=== PATIENT | female | born 1950 | race Caucasian/White ===

== ENCOUNTER → 2021-05-22 | Outpatient (CLI) | payer MEDICARE ==
--- NOTE | 2021-05-22 15:50 | US ---
EXAMINATION TYPE: US abdomen complete DATE OF EXAM: 05/22/2021 COMPARISON: NONE CLINICAL HISTORY: 70-year-old female R10.11 RT UPPER QUADRANT PAIN. RUQ pain. TECHNIQUE: Multiple sonographic images of the abdomen are obtained. FINDINGS: EXAM MEASUREMENTS: Liver Length: 16.7 cm Gallbladder Wall: 0.2 cm CBD: 0.6 cm Spleen: 9.4 cm Right Kidney: 11.0 x 5.4 x 5.1 cm Left Kidney: 11.2 x 4.8 x 5.8 cm Pancreas: No specific abnormality. Liver: wnl Gallbladder: multiple mobile echogenic foci. No abnormal distention, wall thickening, or surrounding fluid. Evidence for sonographic Hernandez's sign: neg CBD: wnl Spleen: wnl Kidneys: No hydronephrosis. Upper IVC: wnl Abd Aorta: No AAA visualized IMPRESSION: 1. Cholelithiasis with small layering gallstones. No axillary findings of acute cholecystitis. 2. Bile duct borderline dilated at 6 mm. This may be acceptable given patient's age. Correlate with a lkaline phosphatase and bilirubin levels.
== END | disposition home or self-care (01) ==
LOC: RADUSWWP 12:55
PROVIDERS: ATTEND Family Medicine
DX: K80.20 Calculus of gallbladder without cholecystitis without obstruction (principal)
CPT/HCPCS: 76700

== ENCOUNTER 2021-07-04 08:12 | Observation (INO) | payer MEDICARE ==
[2021-07-03 09:16] VITALS: BMI 28.2
[~2021-07-04 08:12] MED LIST: ACETAMINOPHEN TAB 500 MG TAB PO PRN; DEXAMETHASONE SOD PHOSPHATE 4 MG/ML 1 ML VIAL IV ONE; HEPARIN SODIUM,PORCINE/PF 5,000 UNIT/0.5 ML SYRINGE SQ PRN; LIDOCAINE 1% (10MG/ML) FOR IV START INTRADERMA PRN; MIDAZOLAM 2 MG/2 ML VIAL IV PRN; ONDANSETRON 4 MG/2 ML VIAL IVP ONE
[2021-07-04 09:08] LABS: Glucose,Whole Blood 99 mg/dL (75-99)
--- NOTE | 2021-07-04 09:09 | P.GSHP ---
History of Present Illness H&P Date: 07/04/21 Chief Complaint: Cholelithiasis This a 68-year-old female who presents today for laparoscopic cholecystectomy. Patient is requiring pain. She does not have cholelithiasis on ultrasound. Past Medical History Past Medical History: Diabetes Mellitus, Hyperlipidemia, Hypertension Additional Past Medical History / Comment(s): GALLBLADDER DISORDER History of Any Multi-Drug Resistant Organisms: None Reported Past Surgical History: Adenoidectomy, Back Surgery, Bladder Surgery, Heart Catheterization, Joint Replacement, Orthopedic Surgery, Tubal Ligation Additional Past Surgical History / Comment(s): PARTIAL RT TKA. BILAT CATARACT SURGERY. COLONOSCOPY. BILAT FOOT SX. RECTOCELE. BILAT EYELID SX Past Anesthesia/Blood Transfusion Reactions: No Reported Reaction Smoking Status: Never smoker, Second hand smoke exposure - Past Family History Mother Family Medical History: Cancer Medications and Allergies Home Medications Medication Instructions Recorded Confirmed Type Aspirin 81 mg PO DAILY 07/03/21 07/04/21 History Atorvastatin [Lipitor] 20 mg PO HS 07/03/21 07/04/21 History Glimepiride [Amaryl] 2 mg PO BID 07/03/21 07/04/21 History Insulin Detemir (Levemir) [Levemir] 35 unit SQ HS 07/03/21 07/04/21 History Isosorbide Mononitrate [Isosorbide 30 mg PO DAILY 07/03/21 07/04/21 History Mononitrate ER] Losartan [Cozaar] 25 mg PO DAILY 07/03/21 07/04/21 History Metoprolol Succinate [Toprol XL] 25 mg PO DAILY 07/03/21 07/04/21 History metFORMIN HCL [Glucophage] 500 mg PO BID 07/03/21 07/04/21 History Allergies Allergy/AdvReac Type Severity Reaction Status Date / Time No Known Allergies Allergy Verified 07/04/21 08:56 Surgical - Exam - General well developed, well nourished, no distress - Eyes PERRL - ENT normal pinna - Neck no masses - Respiratory normal expansion - Cardiovascular Rhythm: regular - Abdomen Abdomen: soft, non tender Assessment and Plan Assessment: Cholelithiasis. We'll perform laparoscopic cholecystectomy.
[2021-07-04] MEDS: LACTATED RINGERS 1,000 ML IV SCH (09:15)
[2021-07-04] MEDS ORDERED: BUPIVACAIN-EPI 0.25%-1:200,000 30 ML VIAL SQ ONE (09:32)
[2021-07-04] MEDS ORDERED: LIDOCAINE 1% INJ 10MG/ML (20 ML MDV) ONE (09:35)
[2021-07-04] MEDS ORDERED: PROPOFOL 10 MG/ML 20 ML VIAL IV ONE (09:35)
[2021-07-04] MEDS ORDERED: ROCURONIUM 10 MG/ML (5 ML VIAL) IV ONE (09:35)
[2021-07-04] MEDS ORDERED: MIDAZOLAM 2 MG/2 ML VIAL ONE (09:35)
[2021-07-04] MEDS ORDERED: SUCCINYLCHOLINE CHLORIDE 100 MG/5 ML SYR IV ONE (09:35)
[2021-07-04] MEDS ORDERED: fentaNYL (PF) 50 MCG/ML 2 ML AMP ONE (09:35)
--- NOTE | 2021-07-04 10:29 | P.OP ---
Date of Procedure: 07/04/21 Preoperative Diagnosis: Cholelithiasis Postoperative Diagnosis: Cholelithiasis Procedure(s) Performed: Laparoscopic cholecystectomy Anesthesia: ORESTES Surgeon: Yahir Mckeon Estimated Blood Loss (ml): 5 Pathology: other (Gallbladder) Condition: stable Disposition: PACU Description of Procedure: The patient was placed on the operating table. The patient received a general endotracheal tube anesthesia. The patients abdomen was prepped and draped in the usual sterile fashion. Through an infraumbilical stab incision, the fascia of the anterior abdominal wall was grasped with a pair of Kochers and then the Veress needle was placed in the peritoneal cavity. Position of the Veress needle was confirmed with positive drop test. The abdomen was then insufflated. After adequate insufflation, the 10 mm trocar was placed in the peritoneal cavity. Following this the laparoscope was placed in the peritoneal cavity. The patient was placed in the head-up, right side up position and then a 5 mm trocar was placed in the right lateral and right subcostal position under direct visualization. A 8 mm trocar was placed in the epigastric position. The gallbladder was grasped in the fundus and infundibulum. Traction on the gallbladder was placed in the lateral and the cephalad positions. The triangle of Calot was visualized.. The cystic duct was bluntly dissected until the union of the cystic duct and common bile duct was seen. A critical view of safety was achieved. The cystic duct was then divided and sealed with the Harmonic scissors. A PDS Endoloop was then placed throughout the cystic duct stump. The cystic artery divided and sealed with the Harmonic scissors. The gallbladder was then removed from the liver bed using Harmonic scissors. The gallbladder was then extracted through the epigastric port site. Operative field was checked for any bleeding spots and Harmonic scissors was used to coagulate the liver bed. The abdomen was irrigated. The trocars were removed. The skin was closed using interrupted 3-0 Vicryl suture. Dermabond dressing were applied. The patient tolerated the procedure well.
[2021-07-04] MEDS ORDERED: ONDANSETRON 4 MG/2 ML VIAL IVP PRN (10:30)
[2021-07-04] MEDS ORDERED: HYDROmorphone 0.5 MG/0.5 ML SYRINGE IVP PRN (10:30)
[2021-07-04] MEDS ORDERED: NALOXONE 0.4 MG/ML 1 ML VIAL IV PRN (10:30)
[2021-07-04] MEDS ORDERED: LACTATED RINGERS 1,000 ML IV ONE (10:30)
[2021-07-04 10:31] LABS: Glucose,Whole Blood 129 mg/dL (75-99)
[2021-07-04] MEDS: HYDROmorphone 0.5 MG/0.5 ML SYRINGE IVP PRN ×2 (11:01→11:12)
[2021-07-04 12:57] LABS: Glucose,Whole Blood 201 mg/dL (75-99)
[2021-07-04] MEDS: HYDROcodone/APAP 5-325MG 1 EACH TAB PO PRN ×2 (15:00→20:53)
[2021-07-04] MEDS: metFORMIN 500 MG TAB PO SCH (17:12)
[2021-07-04 17:47] LABS: Glucose,Whole Blood 315 mg/dL (75-99)
[2021-07-04] MEDS: INSULIN ASPART (NovoLOG) 100 UNIT/ML VIAL SQ SCH ×2 (17:53→20:53)
[2021-07-04 20:20] LABS: Glucose,Whole Blood 255 mg/dL (75-99)
[2021-07-04] MEDS: ATORVASTATIN 20 MG TAB PO SCH (20:52)
[2021-07-04] MEDS: INSULIN DETEMIR (LEVEMIR) 100 UNIT/ML SYR SQ SCH (20:53)
[2021-07-04] MEDS: GLIMEPIRIDE 2 MG TAB PO SCH (20:53)
--- NOTE | 2021-07-04 22:12 | P.CONS ---
History of Present Illness - Reason for Consult Consult date: 07/04/21 Medical management - Chief Complaint Status post laparoscopic cholecystectomy. - History of Present Illness Patient is a 68-year-old female with a known history of hypertension, hyperlipidemia, diabetes type 2 insulin-dependent was admitted to the hospital for laparoscopic cholecystectomy. Patient has been having has been having symptoms of right upper quadrant abdominal pain and epigastric pain for the past 2 months. Patient recently moved to [place] to help his son who had stroke. Patient had ultrasound of the abdomen done on 05/22/2021 showed multiple mobile echogenic foci. No abnormal distention. Wall thickening, ulcer no new Omer. Evidence for sonographic Hernandez sign negative. Showed cholelithiasis with small layering gallstones. No axillary findings of acute cholecystitis. Bile duct borderline dilated 6 mm. Patient is status post laparoscopic cholecystectomy. Denies any complaints of chest pain or shortness of. No nausea vomiting or abdominal pain. No headache or dizziness or lightheadedness. No fever no chills. Coronavirus PCR not detected. Review of Systems Constitutional: Patient denies any fever or chills . No generalized weakness or weight loss. Abdomen: Patient denied nausea vomiting and diarrhea and abdominal pain. Cardiovascular: Patient denies any chest pain or short of breath no palpitations. Respiratory: patient denied any cough or sputum production. No shortness of breath Neurologic: Patient denied any numbness or tingling headache. Musculoskeletal: Patient denies any complaints of joint swelling or deformity. Skin: Negative Psychiatric: Negative Endocrine: No heat or cold intolerance. No recent weight gain. Genitourinary: No dysuria or hematuria. All other 14 point ROS negative except the above Past Medical History Past Medical History: Diabetes Mellitus, Hyperlipidemia, Hypertension Additional Past Medical History / Comment(s): GALLBLADDER DISORDER History of Any Multi-Drug Resistant Organisms: None Reported Past Surgical History: Adenoidectomy, Back Surgery, Bladder Surgery, Heart Catheterization, Joint Replacement, Orthopedic Surgery, Tubal Ligation Additional Past Surgical History / Comment(s): PARTIAL RT TKA. BILAT CATARACT SURGERY. COLONOSCOPY. BILAT FOOT SX. RECTOCELE. BILAT EYELID SX Past Anesthesia/Blood Transfusion Reactions: No Reported Reaction Smoking Status: Never smoker, Second hand smoke exposure - Past Family History Mother Family Medical History: Cancer Medications and Allergies Home Medications Medication Instructions Recorded Confirmed Type Aspirin 81 mg PO DAILY 07/03/21 07/04/21 History Atorvastatin [Lipitor] 20 mg PO HS 07/03/21 07/04/21 History Glimepiride [Amaryl] 2 mg PO BID 07/03/21 07/04/21 History Insulin Detemir (Levemir) [Levemir] 35 unit SQ HS 07/03/21 07/04/21 History Isosorbide Mononitrate [Isosorbide 30 mg PO DAILY 07/03/21 07/04/21 History Mononitrate ER] Losartan [Cozaar] 25 mg PO DAILY 07/03/21 07/04/21 History Metoprolol Succinate [Toprol XL] 25 mg PO DAILY 07/03/21 07/04/21 History metFORMIN HCL [Glucophage] 500 mg PO BID 07/03/21 07/04/21 History Acetaminophen Tab [Tylenol] 650 mg PO Q6H #30 tab 07/04/21 Rx Docusate [Colace] 100 mg PO BID #20 capsule 07/04/21 Rx Ibuprofen [Motrin] 600 mg PO Q6HR PRN #40 tab 07/04/21 Rx oxyCODONE HCL [OxyIR] 5 mg PO Q6H PRN 3 Days #10 tab 07/04/21 Rx Allergies Allergy/AdvReac Type Severity Reaction Status Date / Time No Known Allergies Allergy Verified 07/04/21 08:56 Physical Exam Vitals: Vital Signs Temp Pulse Pulse Resp BP Pulse Ox 07/04/21 11:40 98.6 F 64 18 145/73 98 07/04/21 11:16 80 10 L 170/80 97 07/04/21 11:00 60 10 L 156/76 98 07/04/21 10:45 61 10 L 152/72 98 07/04/21 10:30 66 10 L 138/65 98 07/04/21 10:21 97.8 F 71 10 L 156/72 98 07/04/21 09:15 97.9 F 80 16 146/74 97 Intake and Output 07/03/21 07/04/21 07/04/21 22:59 06:59 14:59 Intake Total 750 Output Total 5 Balance 745 Intake: IV 750 Output: Estimated Blood Loss 5 Other: Weight 81 kg PHYSICAL EXAMINATION: Patient is lying in the bed comfortably, no acute distress, awake alert and oriented.. HEENT: Normocephalic. Neck is supple. Pupils reactive. Nostrils clear. Oral cavity is moist. Neck reveals no JVD, carotid bruits, or thyromegaly. CHEST EXAMINATION: Trachea is central. Symmetrical expansion. Lung wagoner clear to auscultation and percussion. CARDIAC: Normal S1, S2 with no gallops. No murmurs ABDOMEN: Soft. Bowel sounds present. No organomegaly. No abdominal bruits. Extremities: reveal no edema. No clubbing or cyanosis Neurologically awake, alert, oriented x3 with well-coordinated movements. No focal deficits noted Skin: No rash or skin lesions. Psychiatric: Cooperative. Nonsuicidal Musculoskeletal: No joint swelling or deformity. Normal range of motion. Results Labs: Abnormal Lab Results - Last 24 Hours (Table) 07/04/21 07/04/21 Range/Units 10:30 12:55 POC Glucose (mg/dL) 129 H 201 H (75-99) mg/dL Assessment and Plan Assessment: Status post laparoscopic cholecystectomy. Postoperative day 0. Cholelithiasis. Hypertension Diabetes type 2 insulin-dependent. Hyperlipidemia History of cardiac catheterization. No PCI. DVT prophylaxis. Plan: Patient will be continued on IV hydration and start back on home blood pressure medications and insulin regimen. Continue with insulin sliding scale as well for better blood sugar control. Pain management, DVT prophylaxis and bowel regimen as per admitting team. Follow-up CBC in [facility] tomorrow. We will continue to follow and further recommendations based on clinical course. Time with Patient: Greater than 30
[2021-07-05 07:26] LABS: Glucose,Whole Blood 143 mg/dL (75-99)
[2021-07-05 07:48] LABS: Basophils % (A) 0 %; Eosinophils # (A) 0.1 k/uL (0-0.7); Eosinophils % (A) 0 %; HGB 12.5 gm/dL (11.4-16.0); Lymphocytes # (A) 2.2 k/uL (1.0-4.8); Lymphocytes % (A) 17 %; MCHC 32.2 g/dL (31.0-37.0); MCV 90.1 fL (80.0-100.0); Mean Platelet Volume 8.1; Monocytes # (A) 0.5 k/uL (0-1.0); Monocytes % (A) 4 %; Neutrophils % (A) 77 %; Platelet Count 263 k/uL (150-450); RBC 4.33 m/uL (3.80-5.40); RDW 12.4 % (11.5-15.5)
[2021-07-05 08:02] LABS: ALT 36 U/L (4-34); AST 45 U/L (14-36); African American GFR (CKD) >90 (>60 ml/min/1.73 sqM); Albumin 3.9 g/dL (3.5-5.0); Albumin/Globulin Ratio 1.3; Alkaline Phosphatase 60 U/L (38-126); Anion Gap 9 mmol/L; Blood Urea Nitrogen 17 mg/dL (7-17); Calcium 9.9 mg/dL (8.4-10.2); Carbon Dioxide 26 mmol/L (22-30); Chloride 101 mmol/L (98-107); Globulin 3.1 g/dL; Glucose 169 mg/dL (74-99); Non-African American GFR(CKD) 89 (>60 ml/min/1.73 sqM); Potassium 3.9 mmol/L (3.5-5.1); Sodium 136 mmol/L (137-145); Total Bilirubin 1.5 mg/dL (0.2-1.3)
[2021-07-05] MEDS: LOSARTAN 25 MG TAB PO SCH (08:15)
[2021-07-05] MEDS: metFORMIN 500 MG TAB PO SCH ×2 (08:15→18:07)
[2021-07-05] MEDS: METOPROLOL SUCCINATE (ER) 25 MG TAB.ER.24H PO SCH (08:15)
[2021-07-05] MEDS: GLIMEPIRIDE 2 MG TAB PO SCH ×2 (08:15→19:30)
[2021-07-05] MEDS: ENOXAPARIN 40 MG/0.4 ML SYRINGE SQ SCH (08:16)
[2021-07-05] MEDS: ISOSORBIDE MONONITRATE ER 30 MG TAB.ER.24H PO SCH (08:16)
[2021-07-05] MEDS: HYDROcodone/APAP 5-325MG 1 EACH TAB PO PRN ×2 (08:16→15:19)
[2021-07-05] MEDS: INSULIN ASPART (NovoLOG) 100 UNIT/ML VIAL SQ SCH ×4 (08:17→20:47)
[2021-07-05] MEDS: LACTATED RINGERS 1,000 ML IV SCH (08:24)
[2021-07-05 12:17] LABS: Glucose,Whole Blood 178 mg/dL (75-99)
--- NOTE | 2021-07-05 12:49 | P.PN ---
Subjective Progress Note Date: 07/05/21 CHIEF COMPLAINT: Cholelithiasis HISTORY OF PRESENT ILLNESS: Patient is status post laparoscopic cholecystectomy. Her pain is controlled. Denies any nausea or vomiting. Tolerating diet. Having flatus. She does have mildly elevated LFTs. Total bilirubin 1.5 AST 45 ALT 36. WBC is 13 she did receive a dose of Decadron yesterday. Afebrile. PHYSICAL EXAM: VITAL SIGNS: Reviewed. GENERAL: Well-developed in no acute distress. HEENT: No sclera icterus. Extraocular movements grossly intact. Moist buccal mucosa. Head is atraumatic, normocephalic. ABDOMEN: Soft. Nondistended. Incision sites minimal dried blood NEUROLOGIC: Alert and oriented. Cranial nerves II through XII grossly intact. ASSESSMENT: 1. Cholelithiasis status post laparoscopic cholecystectomy 2. Mildly elevated LFTs PLAN: -Keep patient for another night and repeat LFTs in a.m. -Continue regular diet -Continue pain medication as needed -Encourage patient to ambulate -DVT prophylaxis Lovenox and GI prophylaxis Pepcid Physician Pharmacy Ancillary note has been reviewed by physician. Signing provider agrees with the documented findings, assessment, and plan of care. Objective - Vital Signs Vital signs: Vital Signs Temp 97.7 F 07/05/21 07:00 Pulse 61 07/05/21 07:00 Resp 18 07/05/21 07:00 BP 134/74 07/05/21 07:00 Pulse Ox 97 07/05/21 07:00 Intake & Output 07/04/21 07/05/21 07/05/21 18:59 06:59 18:59 Intake Total 1110 180 Output Total 5 Balance 1105 180 Weight 81 kg Intake: IV 750 Oral 360 180 Output: Estimated Blood Loss 5 Other: # Voids 0 2 # Bowel Movements 0 - Labs CBC & Chem 7: 07/05/21 06:34 07/05/21 06:34 Labs: Abnormal Lab Results - Last 24 Hours (Table) 07/04/21 07/04/21 07/04/21 Range/Units 12:55 17:44 20:19 WBC (3.8-10.6) k/uL Neutrophils # (1.3-7.7) k/uL Sodium (137-145) mmol/L Glucose (74-99) mg/dL POC Glucose (mg/dL) 201 H 315 H 255 H (75-99) mg/dL Total Bilirubin (0.2-1.3) mg/dL AST (14-36) U/L ALT (4-34) U/L 07/05/21 07/05/21 07/05/21 Range/Units 06:34 06:34 07:25 WBC 13.0 H (3.8-10.6) k/uL Neutrophils # 10.0 H (1.3-7.7) k/uL Sodium 136 L (137-145) mmol/L Glucose 169 H (74-99) mg/dL POC Glucose (mg/dL) 143 H (75-99) mg/dL Total Bilirubin 1.5 H (0.2-1.3) mg/dL AST 45 H (14-36) U/L ALT 36 H (4-34) U/L 07/05/21 Range/Units 12:15 WBC (3.8-10.6) k/uL Neutrophils # (1.3-7.7) k/uL Sodium (137-145) mmol/L Glucose (74-99) mg/dL POC Glucose (mg/dL) 178 H (75-99) mg/dL Total Bilirubin (0.2-1.3) mg/dL AST (14-36) U/L ALT (4-34) U/L
[2021-07-05] MEDS: FAMOTIDINE 20 MG TAB PO SCH (13:37)
[2021-07-05 17:25] LABS: Glucose,Whole Blood 164 mg/dL (75-99)
[2021-07-05] MEDS: ATORVASTATIN 20 MG TAB PO SCH (19:30)
[2021-07-05 20:28] LABS: Glucose,Whole Blood 182 mg/dL (75-99)
[2021-07-05] MEDS: INSULIN DETEMIR (LEVEMIR) 100 UNIT/ML SYR SQ SCH (20:47)
--- NOTE | 2021-07-05 23:18 | P.PN ---
Subjective Progress Note Date: 07/05/21 Principal diagnosis: Patient is status post laparoscopic cholecystectomy On 07/04/2021 Patient is a 68-year-old female with a known history of hypertension, hyperlipidemia, diabetes type 2 insulin-dependent was admitted to the hospital for laparoscopic cholecystectomy. Patient has been having has been having symptoms of right upper quadrant abdominal pain and epigastric pain for the past 2 months. Patient recently moved to [place] to help his son who had stroke. Patient had ultrasound of the abdomen done on 05/22/2021 showed multiple mobile echogenic foci. No abnormal distention. Wall thickening, ulcer no new Omer. Evidence for sonographic Hernandez sign negative. Showed cholelithiasis with small layering gallstones. No axillary findings of acute cholecystitis. Bile duct borderline dilated 6 mm. Patient is status post laparoscopic cholecystectomy. Denies any complaints of chest pain or shortness of. No nausea vomiting or abdominal pain. No headache or dizziness or lightheadedness. No fever no chills. Coronavirus PCR not detected. 07/05/2021 Patient is status post laparoscopic cholecystectomy postoperative day 1 Patient is currently walking in the room. Denied any complaints of chest pain or shortness of breath. Right upper quadrant abdominal pain is improved. No complaints of nausea or vomiting. Patient is able to pass flatus. No bowel event today. No fever no chills. No cough or sputum production. Lab data showed WBC 13.0 hemoglobin 12.4 and platelets 263 Sodium 136 potassium 3.9 BUN 17 and creatinine 0.6 and total bilirubin level 1. 5, AST 45 ALT 36 and alk phos 60. Liver enzymes and bilirubin slightly elevated. Current medications reviewed. Objective - Vital Signs Vital signs: Vital Signs Temp 97.8 F 07/05/21 19:19 Pulse 58 L 07/05/21 19:19 Resp 18 07/05/21 19:19 BP 114/61 07/05/21 19:19 Pulse Ox 98 07/05/21 19:19 Intake & Output 07/05/21 07/05/21 07/06/21 06:59 18:59 06:59 Intake Total 360 Balance 360 Intake: Oral 360 Other: # Voids 2 4 1 # Bowel Movements 0 - Exam PHYSICAL EXAMINATION: Patient is lying in the bed comfortably, no acute distress, awake alert and oriented.. HEENT: Normocephalic. Neck is supple. Pupils reactive. Nostrils clear. Oral ca vity is moist. Neck reveals no JVD, carotid bruits, or thyromegaly. CHEST EXAMINATION: Trachea is central. Symmetrical expansion. Lung wagoner clear to auscultation and percussion. CARDIAC: Normal S1, S2 with no gallops. No murmurs ABDOMEN: Soft. Bowel sounds present. No organomegaly. No abdominal bruits. Extremities: reveal no edema. No clubbing or cyanosis Neurologically awake, alert, oriented x3 with well-coordinated movements. No focal deficits noted Skin: No rash or skin lesions. Psychiatric: Cooperative. Nonsuicidal Musculoskeletal: No joint swelling or deformity. Normal range of motion. - Labs CBC & Chem 7: 07/05/21 06:34 07/05/21 06:34 Labs: Abnormal Lab Results - Last 24 Hours (Table) 07/05/21 07/05/21 07/05/21 Range/Units 06:34 06:34 07:25 WBC 13.0 H (3.8-10.6) k/uL Neutrophils # 10.0 H (1.3-7.7) k/uL Sodium 136 L (137-145) mmol/L Glucose 169 H (74-99) mg/dL POC Glucose (mg/dL) 143 H (75-99) mg/dL Total Bilirubin 1.5 H (0.2-1.3) mg/dL AST 45 H (14-36) U/L ALT 36 H (4-34) U/L 07/05/21 07/05/21 07/05/21 Range/Units 12:15 17:23 20:27 WBC (3.8-10.6) k/uL Neutrophils # (1.3-7.7) k/uL Sodium (137-145) mmol/L Glucose (74-99) mg/dL POC Glucose (mg/dL) 178 H 164 H 182 H (75-99) mg/dL Total Bilirubin (0.2-1.3) mg/dL AST (14-36) U/L ALT (4-34) U/L Assessment and Plan Assessment: Status post laparoscopic cholecystectomy. Postoperative day 1. Mildly elevated liver enzymes and bilirubin level. Cholelithiasis. Hypertension Diabetes type 2 insulin-dependent. Hyperlipidemia History of cardiac catheterization. No PCI. DVT prophylaxis. Plan: Patient will be continued on IV hydration and start back on home blood pressure medications and insulin regimen. Continue with insulin sliding scale as well for better blood sugar control. Pain management, DVT prophylaxis and bowel regimen as per admitting team. Follow-up CBC in [facility] tomorrow. We will continue to follow and further recommendations based on clinical course.
[2021-07-06 07:12] LABS: Glucose,Whole Blood 94 mg/dL (75-99)
[2021-07-06] MEDS: INSULIN ASPART (NovoLOG) 100 UNIT/ML VIAL SQ SCH ×2 (07:27→12:57)
[2021-07-06 07:38] VITALS: RESP 18
[2021-07-06 07:40] VITALS: BP 131/71; PULSE 64; TEMP 97.7
[2021-07-06 08:12] LABS: Basophils # (A) 0.1 k/uL (0-0.2); Basophils % (A) 1 %; Eosinophils # (A) 0.4 k/uL (0-0.7); Eosinophils % (A) 4 %; HCT 39.9 % (34.0-46.0); Lymphocytes # (A) 3.8 k/uL (1.0-4.8); Lymphocytes % (A) 35 %; MCH 29.3 pg (25.0-35.0); MCHC 32.5 g/dL (31.0-37.0); MCV 90.3 fL (80.0-100.0); Mean Platelet Volume 8.1; Monocytes # (A) 0.5 k/uL (0-1.0); Monocytes % (A) 5 %; Neutrophils % (A) 55 %; Platelet Count 256 k/uL (150-450); RBC 4.42 m/uL (3.80-5.40); RDW 12.4 % (11.5-15.5); WBC 10.9 k/uL (3.8-10.6)
[2021-07-06 08:29] LABS: ALT 38 U/L (4-34); AST 47 U/L (14-36); African American GFR (CKD) >90 (>60 ml/min/1.73 sqM); Albumin 3.9 g/dL (3.5-5.0); Albumin/Globulin Ratio 1.3; Alkaline Phosphatase 52 U/L (38-126); Anion Gap 8 mmol/L; Blood Urea Nitrogen 18 mg/dL (7-17); Calcium 9.9 mg/dL (8.4-10.2); Carbon Dioxide 28 mmol/L (22-30); Chloride 103 mmol/L (98-107); Globulin 3.1 g/dL; Glucose 91 mg/dL (74-99); Non-African American GFR(CKD) 90 (>60 ml/min/1.73 sqM); Potassium 3.9 mmol/L (3.5-5.1); Sodium 139 mmol/L (137-145); Total Bilirubin 1.3 mg/dL (0.2-1.3)
[2021-07-06] MEDS: FAMOTIDINE 20 MG TAB PO SCH (09:14)
[2021-07-06] MEDS: ENOXAPARIN 40 MG/0.4 ML SYRINGE SQ SCH (09:14)
[2021-07-06] MEDS: METOPROLOL SUCCINATE (ER) 25 MG TAB.ER.24H PO SCH (09:14)
[2021-07-06] MEDS: GLIMEPIRIDE 2 MG TAB PO SCH (09:15)
[2021-07-06] MEDS: LOSARTAN 25 MG TAB PO SCH (09:15)
[2021-07-06] MEDS: metFORMIN 500 MG TAB PO SCH (09:15)
[2021-07-06] MEDS: ISOSORBIDE MONONITRATE ER 30 MG TAB.ER.24H PO SCH (09:15)
[2021-07-06] MEDS: HYDROcodone/APAP 5-325MG 1 EACH TAB PO PRN (09:27)
[2021-07-06 10:55] LABS: Appearance,Urine Clear (Clear); Bilirubin,Urine Negative (Negative); Blood,Urine Negative (Negative); Color,Urine Yellow; Glucose,Urine (UA) 1+ (Negative); Ketones,Urine Negative (Negative); Leukocyte Esterase,Urine Negative (Negative); Nitrite,Urine Negative (Negative); PH, Urine 5.5 (5.0-8.0); Protein,Urine Negative (Negative); Specific Gravity,Urine 1.013 (1.001-1.035); Urobilinogen,Urine <2.0 mg/dL (<2.0)
--- NOTE | 2021-07-06 12:23 | P.DS ---
Providers Date of admission: 07/05/21 15:05 Expected date of discharge: 07/06/21 Attending physician: Yahir Mckeon Consults: 07/04/21 10:30 Consult Physician Routine Consulting Provider: Kary Garibay Consult Reason/Comments: Medical management Do you want consulting provider notified?: Yes Primary care physician: Anita Doherty [facility] Hospital Course: Discharge diagnosis 1. Cholelithiasis status post laparoscopic cholecystectomy 2. Mildly elevated LFTs Hospital course This is a 70-year-old female with known cholelithiasis with right upper quadrant abdominal pain. She is status post laparoscopic cholecystectomy. She tolerated surgery well. Her pain is controlled. She is having flatus and bowel movements. She is up and ambulating. She is tolerating diet. Patient has mildly elevated LFTs. She has been taking her cholesterol medication. Would recommend to hold this medication until she is evaluated by her PCP and repeat LFTs are done. Patient is stable for discharge. His chart for any further details. Physician Antisqueak Applier note has been reviewed by physician. Signing provider agrees with the documented findings, assessment, and plan of care. Patient Condition at Discharge: Stable Plan - Discharge Summary Discharge Rx Participant: No New Discharge Prescriptions: New Docusate [Colace] 100 mg PO BID #20 capsule Ibuprofen [Motrin] 600 mg PO Q6HR PRN #40 tab PRN Reason: Pain Acetaminophen Tab [Tylenol] 650 mg PO Q6H #30 tab oxyCODONE HCL [OxyIR] 5 mg PO Q6H PRN 3 Days #10 tab PRN Reason: Pain Continue Losartan [Cozaar] 25 mg PO DAILY Glimepiride [Amaryl] 2 mg PO BID Aspirin 81 mg PO DAILY metFORMIN HCL [Glucophage] 500 mg PO BID Metoprolol Succinate [Toprol XL] 25 mg PO DAILY Insulin Detemir (Levemir) [Levemir] 35 unit SQ HS Isosorbide Mononitrate [Isosorbide Mononitrate ER] 30 mg PO DAILY Discontinued Atorvastatin [Lipitor] 20 mg PO HS Discharge Medication List Aspirin 81 mg PO DAILY 07/03/21 [History] Glimepiride [Amaryl] 2 mg PO BID 07/03/21 [History] Insulin Detemir (Levemir) [Levemir] 35 unit SQ HS 07/03/21 [History] Isosorbide Mononitrate [Isosorbide Mononitrate ER] 30 mg PO DAILY 07/03/21 [History] Losartan [Cozaar] 25 mg PO DAILY 07/03/21 [History] Metoprolol Succinate [Toprol XL] 25 mg PO DAILY 07/03/21 [History] metFORMIN HCL [Glucophage] 500 mg PO BID 07/03/21 [History] Acetaminophen Tab [Tylenol] 650 mg PO Q6H #30 tab 07/04/21 [Rx] Docusate [Colace] 100 mg PO BID #20 capsule 07/04/21 [Rx] Ibuprofen [Motrin] 600 mg PO Q6HR PRN #40 tab 07/04/21 [Rx] oxyCODONE HCL [OxyIR] 5 mg PO Q6H PRN 3 Days #10 tab 07/04/21 [Rx] Follow up Appointment(s)/Referral(s): Yahir Mckeon MD [STAFF PHYSICIAN] - 1 Week Anita Doherty NPC [Primary Care Provider] - 1 Week Activity/Diet/Wound Care/Special Instructions: No driving while taking oxyIR No lifting over 10 pounds You may shower. No soaking or tub baths for 2 weeks Very light activity until you are reevaluated at your follow up appointment with your surgeon Hold Lipitor until reevaluated by PCP due to elevated liver function tests Discharge Disposition: HOME SELF-CARE
[2021-07-06 12:28] LABS: Glucose,Whole Blood 124 mg/dL (75-99)
[2021-07-06] MEDS: LACTATED RINGERS 1,000 ML IV SCH (12:57)
== END 2021-07-06 13:48 | disposition home or self-care (01) ==
LOC: OR 08:12 → 6NMEDSUR 10:26 → OR 07-05 15:05
PROVIDERS: ADMIT Surgery; ATTEND Surgery
DX: K80.10 Calculus of gallbladder with chronic cholecystitis without obstruction (principal); E11.9 Type 2 diabetes mellitus without complications; I10 Essential (primary) hypertension; E78.5 Hyperlipidemia, unspecified; R79.89 Other specified abnormal findings of blood chemistry; Z20.822 Contact with and (suspected) exposure to COVID-19; Z79.82 Long term (current) use of aspirin; Z79.84 Long term (current) use of oral hypoglycemic drugs; Z79.4 Long term (current) use of insulin; Z79.899 Other long term (current) drug therapy; Z98.51 Tubal ligation status; Z77.22 Contact with and (suspected) exposure to environmental tobacco smoke (acute) (chronic); Z96.651 Presence of right artificial knee joint; Z98.42 Cataract extraction status, left eye; Z98.41 Cataract extraction status, right eye; Z98.890 Other specified postprocedural states; Z82.3 Family history of stroke; Z80.9 Family history of malignant neoplasm, unspecified
CPT/HCPCS: 88304; 80053 ×2; 85025 ×2; 81003; 87635; 47562; G0378 ×2; J2250; J1100; J0690; J2405; J2001; J1650 ×2; J3010; J0330; J2704; J1170; J1644

== ENCOUNTER → 2022-02-20 | Outpatient (CLI) | payer MEDICARE ==
--- NOTE | 2022-02-22 15:05 | BD ---
EXAMINATION TYPE: Axial Bone Density DATE OF EXAM: 02/20/2022 COMPARISON: FIRST DEXA AT [facility] CLINICAL HISTORY: 71 years year old Female. ICD-10 CODE: Z780 ASYMPTOMATIC MENOPAUSAL STATE Height: 64.4 Weight: 173 FRAX RISK QUESTIONS: History of Fracture in Adulthood: YES RISK FACTORS HISTORY OF: HX OF FINGER FXs SINCE AN ADULT History of Wrist Fracture: HX OF RT WRIST FX AN ADULT, Surgery to Spine YES L/S SPINE WITH HARDWARE Postmenopausal woman: YES, AT 55 YRS OLD Lost more than 2 inches in height since high school: YES Frequent falls: A BIT UNSTEADY Hyperparathyroidism: NO Adrenal Insufficiency: NO MEDICATIONS: Additional Medications: BP MEDS, METFORMIN, TYPE 2 INJECTIONS, STATIN FOR CHOLESTEROL, VIT D AND CALC IUM, NSAIDS AND PAIN MEDS Additional History: HYPERTENSION, DIABETES, CHOLESTEROL, CHRONIC PAIN, ARTHRITIS, EXAM MEASUREMENTS: Bone mineral densitometry was performed using the [employer] System. HARDWARE IN BACK FROM SURG Bone mineral density about the R hip (g/cm2): 1.410 Bone mineral density about the L hip (g/cm2): 1.331 T Score values are as follows: -----R Neck: 4.2 -----L Neck: 4.1 -----R Total: 3.2 -----L Total: 2.6 Bone mineral density NEW TO [facility] Bone mineral density about the L Wrist (g/cm2): 0.602 T Score values are as follows: -----Dist. R+U: 1.2 -----Prox. R+U: -0.5 -----Radius total: -0.4 Bone mineral density NEW TO [facility] FRAX%s: The graph provided illustrates a 5.0% chance for a major osteoporotic fx and a 0.0% chance fo r the hips probability for fx in 10 years time. IMPRESSION: Normal (Values between +1 and -1 indicate normal bone mass). Consider repeating this study in 5 year s or sooner if there is some new clinical indication. NOTE: T-SCORE=SD OF THE YOUNG ADULT MEAN.
--- NOTE | 2022-02-24 21:39 | MM ---
Reason for Exam: Screening (asymptomatic). Last mammogram was performed 2 year(s) and 11 month(s) ago. Patient History: Menarche at age 12. First Full-Term at age 25. Postmenopausal. Maternal grandmother had breast cancer. Mother had ovarian cancer. Risk Values: Mi 5 year model risk: 1.8%. NCI Lifetime model risk: 4.4%. Prior Study Comparison: 06/16/2009 Bilateral MG screening mammo w CAD - 2, Unknown. 01/20/2014 Bilateral MG screening mammo w CAD - 2, Unknown. 03/10/2019 Bilateral MG screening mammo w CAD - 2, Unknown. Tissue Density: There are scattered fibroglandular densities. Findings: Analyzed By CAD. There is no suspicious group of microcalcifications or new suspicious mass in either breast. Overall Assessment: Benign, BI-RAD 2 Management: Screening Mammogram of both breasts in 1 year. 1. The patient to continue monthly breast exams. 2. A clinical breast exam by your physician is recommended on an annual basis. 3. This exam should not preclude additional follow-up of suspicious palpable abnormalities. Electronically signed and approved by: Luis Ivan M.D. Radiologist
== END | disposition home or self-care (01) ==
LOC: RADMAMWWP 10:59
PROVIDERS: ATTEND Family Medicine
DX: Z12.31 Encounter for screening mammogram for malignant neoplasm of breast (principal); Z78.0 Asymptomatic menopausal state
CPT/HCPCS: 77063; 77067; 77080

== ENCOUNTER → 2023-08-01 | Outpatient (CLI) | payer MEDICARE ==
--- NOTE | 2023-08-05 11:36 | MM ---
Reason for Exam: Screening (asymptomatic). Last mammogram was performed 1 year(s) and 6 month(s) ago. Patient History: Menarche at age 12. First Full-Term at age 25. Postmenopausal. Maternal grandmother had breast cancer. Mother had ovarian cancer. Risk Values: Mi 5 year model risk: 1.8%. NCI Lifetime model risk: 3.9%. Prior Study Comparison: 01/20/2014 Bilateral MG screening mammo w CAD - 2, Unknown. 03/10/2019 Bilateral MG screening mammo w CAD - 2, Unknown. 02/20/2022 Bilateral MG 3D screening mammo w/cad, [facility]. Tissue Density: There are scattered fibroglandular densities. Findings: Analyzed By CAD. Pattern appears symmetrical and stable. Benign calcification is within the right breast. No significant interval changes are evident. No suspicious groups of microcalcifications, spiculated or lobular masses, architectural distortion or other secondary signs of malignancy are mammographically apparent. Overall Assessment: Benign, BI-RAD 2 Management: Screening Mammogram of both breasts in 1 year. A negative mammogram report should not preclude additional follow up of suspicious palpable abnormalities. Patient should continue monthly self breast exam. A clinical breast exam by your physician is recommended on an annual basis and results should be correlated with mammographic findings. Electronically signed and approved by: Jaxon Torres D.O. Radiologis
== END | disposition home or self-care (01) ==
LOC: RADMAMWWP 13:49
PROVIDERS: ATTEND Family Medicine
DX: Z12.31 Encounter for screening mammogram for malignant neoplasm of breast (principal); Z78.0 Asymptomatic menopausal state; Z80.3 Family history of malignant neoplasm of breast
CPT/HCPCS: 77063; 77067

== ENCOUNTER → 2023-10-15 | Outpatient (CLI) | payer MEDICARE ==
[2023-10-15 11:38] LABS: African American GFR (CKD) 79 (>60 ml/min/1.73 sqM); Blood Urea Nitrogen 20 mg/dL (7-17); Non-African American GFR(CKD) 68 (>60 ml/min/1.73 sqM)
--- NOTE | 2023-10-15 14:01 | CT ---
EXAMINATION: CT ABDOMEN AND PELVIS WITH IV CONTRAST DATE OF EXAMINATION: 10/15/2023. COMPARISON: None available. INDICATION: Left lower quadrant and back pain. PROCEDURE: Axial CT of the abdomen and pelvis was performed with contrast and sagittal and coronal reformatted images were performed. CT dose lowering techniques were used, to include: automated expos ure control, adjustment for patient size, and/or use of iterative reconstruction. 100 mL of Isovue-30 0 was given intravenously. FINDINGS: LOWER CHEST : The visualized lung bases are clear. There are no pleural or pericardial effusions. ABDOMEN: Liver and Biliary system: Normal. Adrenal glands: Normal. Kidneys and ureters: Normal. Spleen: Normal. Pancreas: Normal. Gallbladder: Surgically absent. Lymph nodes, Peritoneum and mesentery: There is no mesenteric or retroperitoneal lymphadenopathy. Gastrointestinal tract: There are no dilated loops of bowel or free intraperitoneal air. There is a small sliding hiatal hernia. The appendix is not clearly seen with no secondary changes of appendi citis identified. There is mild sigmoid colonic diverticulosis without evidence of diverticulitis. Aorta/IVC: No aortic aneurysm. IVC normal. Abdominal wall: Normal. PELVIS: Fluid: There is no free fluid in the pelvis. Lymph Nodes: There is no pelvic or inguinal lymphadenopathy.. Urinary bladder: Normal. BONES: Posterior spinal fusion is seen between L3 and L5. Laminectomies are also noted. Disc spacer is seen at this space at these levels as well.. ADDITIONAL SIGNIFICANT FINDINGS: None. IMPRESSION: 1. No acute process seen within the abdomen or pelvis. 2. Diverticulosis without evidence of diverticulitis. 3. Small hiatal hernia.
== END | disposition home or self-care (01) ==
LOC: RADCTMAIN 10:49
PROVIDERS: ATTEND Family Medicine
DX: K57.30 Diverticulosis of large intestine without perforation or abscess without bleeding (principal); K44.9 Diaphragmatic hernia without obstruction or gangrene; R10.32 Left lower quadrant pain
CPT/HCPCS: 82565; 84520; 74177; 36415; Q9967

== ENCOUNTER → 2024-12-31 | Outpatient (CLI) | payer MEDICARE ==
--- NOTE | 2024-12-31 11:16 | BD ---
EXAMINATION TYPE: Axial Bone Density DATE OF EXAM: 12/31/2024 CLINICAL HISTORY: 74 years old Female. ICD-10 CODE: Z78.0 Postmenopausal , Additional History: Height: 65 Weight: 178.0 FRAX RISK QUESTIONS: Alcohol (3 or more units per day): no Family History (Parent hip fracture): no Glucocorticoids (More than 3mos): no (Ex: prednisone, prednisolone, methylprednisolone, dexamethasone, and hydrocortisone). History of Fracture in Adulthood: yes Secondary Osteoporosis: 1. Type 1 Diabetes: no 2. Hyperthyroidism: no 3. Menopause before 45: no 4. Malnutrition: no 5. Chronic liver disease: no Rheumatoid Arthritis: no Current Tobacco Use: no RISK FACTORS HISTORY OF: Hip Fracture (Right/Left): no Spine Fracture: no History of Wrist Fracture: no Surgery to Spine/Hip(right/left)/Wrist (right/left): LS-Spine When: 15 years ago MEDICATIONS: Thyroid Medications: no Osteoporosis Medications: no EXAM MEASUREMENTS: Bone mineral density about the R hip (g/cm2): 1.324 Bone mineral density about the L hip (g/cm2): 1.298 T Score values are as follows: -----R Neck: 2.3 -----L Neck: 2.2 -----R Total: 2.5 -----L Total: 2.3 Z Score values are as follows: -----R Neck: 3.9 -----L Neck: 3.8 -----R Total: 3.9 -----L Total: 3.7 Bone mineral density has: decreased -4.3 % since study of: 02/20/2022 Bone mineral density about the L Wrist (g/cm2): 0.631 T Score values are as follows: -----Dist. R+U: 0.3 -----Prox. R+U: -0.3 -----Radius total: -0.7 Z Score values are as follows: -----Dist. R+U: 2.7 -----Prox. R+U: 2.1 -----Radius total: 1.7 Bone mineral density has: increased 2.2 % since study of: 02/20/2022 FRAX%s: The graph provided illustrates a 7.3% chance for a major osteoporotic fx and a 0.2% chance fo r the hips probability for fx in 10 years time. IMPRESSION: Normal (Values between +1 and -1 indicate normal bone mass). Consider repeating this study in 5 year s or sooner if there is some new clinical indication. NOTE: T-SCORE=SD OF THE YOUNG ADULT MEAN. [facility], , 12/31/2024 11:14 AM
--- NOTE | 2024-12-31 11:18 | MM ---
Reason for Exam: Screening (asymptomatic). Last mammogram was performed 1 year(s) and 5 month(s) ago. Patient History: Menarche at age 12. First Full-Term at age 25. Postmenopausal. Maternal grandmother had breast cancer. Mother had ovarian cancer. Risk Values: Mi 5 year model risk: 1.8%. NCI Lifetime model risk: 3.6%. Prior Study Comparison: 01/20/2014 Bilateral MG screening mammo w CAD - 2, Unknown. 03/10/2019 Bilateral MG screening mammo w CAD - 2, Unknown. 02/20/2022 Bilateral MG 3D screening mammo w/cad, [facility]. 08/01/2023 Bilateral MG 3D screening mammo w/cad, [facility]. Tissue Density: The breasts are heterogeneously dense, which may obscure small masses. Findings: Analyzed By CAD. Right breast: There is no suspicious group of microcalcifications or new suspicious mass. Benign-appearing calcifications right breast. Left breast: There is no suspicious group of microcalcifications or new suspicious mass. Benign-appearing calcifications left breast. Overall Assessment: Benign, BI-RAD 2 Management: Screening Mammogram of both breasts in [address] [facility] will attempt to contact patient to return for supplemental views and ultrasound if indicated. Patient should continue monthly self-breast exams. A clinical breast exam by your physician is recommended on an annual basis. This exam should not preclude additional follow-up of suspicious palpable abnormalities. Note on Mi scores and lifetime risk: 1. A Mi score greater than 3% is considered moderate risk. If this is the case, consider specialist referral to assess eligibility for a risk reducing agent. 2. If overall lifetime risk for the development of breast cancer is 20% or higher, the patient may qualify for future screening with alternating mammogram and breast MRI. [facility], , 12/31/2024 11:15 AM. Electronically signed and approved by: Malachi Cooper DO
== END | disposition home or self-care (01) ==
LOC: RADMAMWWP 09:29
PROVIDERS: ATTEND Family Medicine
DX: Z12.31 Encounter for screening mammogram for malignant neoplasm of breast (principal); R92.333 Mammographic heterogeneous density, bilateral breasts; R92.1 Mammographic calcification found on diagnostic imaging of breast; Z78.0 Asymptomatic menopausal state; Z80.3 Family history of malignant neoplasm of breast
CPT/HCPCS: 77063; 77067; 77080